=== PATIENT | male | born 1955 | race Caucasian/White ===

== ENCOUNTER 2017-07-15 05:51 | Inpatient (IN) | payer OTHER ==
[2017-07-15] MEDS ORDERED: LACTATED RINGER'S 1,000 ML IV* (06:00)
[2017-07-15] MEDS ORDERED: CEFAZOLIN 2 GM/50 ML (PMX) 50 ML IVPB (07:00)
[2017-07-15] MEDS ORDERED: D5W-0.45 NACL + KCL 20 MEQ 1,000 ML IV (07:00)
[2017-07-15] MEDS ORDERED: ROCURONIUM 50 MG INJ ×3 (07:00→10:50)
[2017-07-15] MEDS ORDERED: BUPIVACAINE 0.5%/EPI (SDV) 30 ML INJ (07:03)
[2017-07-15] MEDS ORDERED: MIDAZOLAM 1 MG/ML 2 ML INJ ×2 (07:34)
[2017-07-15] MEDS ORDERED: morphine SULFATE/PF (10 MG/10 ML) INJ (07:45)
[2017-07-15] MEDS ORDERED: FENTAnyl 50 MCG/ML VIAL ×3 (07:45→10:25)
[2017-07-15] MEDS ORDERED: PROPOFOL 20 ML (07:45)
[2017-07-15] MEDS ORDERED: LIDOCAINE 1% (MDV) 20 ML INJ (07:45)
[2017-07-15] MEDS: BUPIVACAINE 0.5%/EPI (SDV) 30 ML INJ INJ (08:05)
[2017-07-15] MEDS ORDERED: CEFAZOLIN 1 GM INJ (08:55)
[2017-07-15] MEDS ORDERED: metroNIDAZOLE 500 MG/NS (PMX) 100 ML IVPB (08:55)
[2017-07-15] MEDS ORDERED: PHENYLephrine (100 MCG/ML) 5ML SYG ×4 (09:12→12:12)
[2017-07-15] MEDS ORDERED: ONDANSETRON 4 MG INJ (09:55)
[2017-07-15] MEDS ORDERED: DEXAMETHASONE 4 MG/ML 1 ML INJ (09:55)
[2017-07-15] MEDS ORDERED: METOPROLOL 5 MG INJ (10:04)
[2017-07-15] MEDS ORDERED: ALBUMIN HUMAN 5% 500 ML ×2 (11:04→11:11)
[2017-07-15] MEDS ORDERED: NORepinephrine 4 MG INJ (11:10)
[2017-07-15] MEDS ORDERED: FUROSEMIDE 20 MG INJ (11:12)
[2017-07-15] MEDS ORDERED: PROPOFOL 100 ML (12:27)
[2017-07-15] MEDS: Metronidazole 500 MG in NS 100 ML IVPB (12:30)
[2017-07-15] MEDS: PHYTONADIONE SC (12:45)
[2017-07-15] MEDS: SOD CHLORIDE 0.9% SC (12:45)
[2017-07-15] MEDS ORDERED: SUGAMMADEX SODIUM 200 MG/2 ML VIAL IV ×2 (12:55→12:56)
[2017-07-15] MEDS: PROPOFOL 100 ML IV ×2 (13:21→21:13)
[2017-07-15] MEDS: LACTATED RINGER'S 1,000 ML IV ×2 (13:27→21:12)
[2017-07-15] MEDS ORDERED: FENTAnyl (DRIP) 1000 mcg/100mL 100 ML IV (13:30)
[2017-07-15] MEDS ORDERED: hydrALAzine 20 MG INJ IV (13:30)
[2017-07-15] MEDS ORDERED: LABETALOL HCL 20MG INJ IV (13:30)
[2017-07-15] MEDS: metroNIDAZOLE 500 MG/NS (PMX) 100 ML IVPB ×2 (13:34→21:12)
[2017-07-15 13:45] LABS: AADO2 Arterial 193.9 mmHg (7.0-24.0); Arterial Base Excess -9.2 mmol/L (-3.0-3); Arterial Blood Gas Oxygen Sat 96.6 mmHG (95.0-98.0); Arterial COHb 0.3 % (0.0-3.0); Arterial HCO3 18.5 mmol/L (22.0-26.0); Arterial MetHb 0.3 % (0.0-1.5); Arterial Total Hemglobin 11.3 g/dl (12.0-18.0); Arterial pCO2 47.8 mmhg (35-45); MODE VENT - AC; Site A-Line
[2017-07-15 14:19] LABS: ADD MAN DIFF? NO
[2017-07-15 14:20] LABS: ABNORMAL IP MESSAGE 1; BASOPHILS % 0.2 % (0.0-2.0); EOSINOPHILS % 0.1 % (0.0-7.0); HEMATOCRIT 29.9 % (42.0-52.0); HEMOGLOBIN 10.7 g/dl (14.0-18.0); LYMPHOCYTES # 0.6 10^3/ul (0.8-2.9); LYMPHOCYTES % 6.4 % (15.0-51.0); MEAN CORPUSCULAR HEMOGLOBIN 32.6 pg (29.0-33.0); MEAN CORPUSCULAR HGB CONC 35.8 g/dl (32.0-37.0); MEAN CORPUSCULAR VOLUME 91.2 fl (82.0-101.0); MEAN PLATELET VOLUME 10.1 fl (7.4-10.4); MONOCYTE # 0.2 10^3/ul (0.3-0.9); MONOCYTES % 1.9 % (0.0-11.0); NEUTROPHILS % 90.9 % (39.0-77.0); PLATELET COUNT 93 10^3/UL (140-415); POSITIVE DIFF @See below; RED BLOOD COUNT 3.28 10^6/ul (4.70-6.10); RED CELL DISTRIBUTION WIDTH 13.4 % (11.5-14.5)
[2017-07-15 14:20] LABS: WHITE BLOOD COUNT 8.8 10^3/ul (4.8-10.8)
[2017-07-15 14:39] LABS: ALANINE AMINOTRANSFERASE 36 IU/L (13-69); ALBUMIN 3.8 g/dl (3.3-4.9); ALBUMIN/GLOBULIN RATIO 1.22; ALKALINE PHOSPHATASE 104 IU/L (42-121); ANION GAP 15 (8-16); ASPARTATE AMINO TRANSFERASE 40 IU/L (15-46); BILIRUBIN,INDIRECT 0.3 mg/dl (0-1.1); BILIRUBIN,TOTAL 0.3 mg/dl (0.2-1.3); BLOOD UREA NITROGEN 9 mg/dl (7-20); CALCIUM 8.8 mg/dl (8.4-10.2); CARBON DIOXIDE 21 mmol/L (21-31); CHLORIDE 110 mmol/L (97-110); CREATININE 0.85 mg/dl (0.61-1.24); GLUCOSE 148 mg/dl (70-220); POTASSIUM 4.4 mmol/L (3.5-5.1); SODIUM 142 mmol/L (135-144); TOTAL PROTEIN 6.9 g/dl (6.1-8.1)
[2017-07-15 15:32] LABS: AADO2 Arterial 138.6 mmHg (7.0-24.0); Arterial Base Excess -6.3 mmol/L (-3.0-3); Arterial Blood Gas Oxygen Sat 96.4 mmHG (95.0-98.0); Arterial COHb 0.3 % (0.0-3.0); Arterial Fraction of Oxyhgb 95.9 % (93.0-99.0); Arterial MetHb 0.2 % (0.0-1.5); Arterial Total Hemglobin 11.1 g/dl (12.0-18.0); Arterial pCO2 42.9 mmhg (35-45); Blood Gas PS 10; MODE VENT - CPAP; Site A-Line
[2017-07-15] MEDS: CEFAZOLIN 2 GM/50 ML (PMX) 50 ML IVPB ×2 (18:21→23:41)
[2017-07-15 19:11] LABS: ADD MAN DIFF? NO
[2017-07-15 19:13] LABS: ABNORMAL IP MESSAGE 1; HEMOGLOBIN 10.3 g/dl (14.0-18.0); LYMPHOCYTES # 0.4 10^3/ul (0.8-2.9); MEAN CORPUSCULAR HEMOGLOBIN 32.3 pg (29.0-33.0); MEAN CORPUSCULAR HGB CONC 35.5 g/dl (32.0-37.0); MEAN CORPUSCULAR VOLUME 90.9 fl (82.0-101.0); MEAN PLATELET VOLUME 9.5 fl (7.4-10.4); MONOCYTE # 0.4 10^3/ul (0.3-0.9); MONOCYTES % 4.4 % (0.0-11.0); NEUTROPHIL # 7.4 10^3/ul (1.6-7.5); NEUTROPHILS % 90.1 % (39.0-77.0); PLATELET COUNT 88 10^3/UL (140-415); POSITIVE DIFF @See below; RED BLOOD COUNT 3.19 10^6/ul (4.70-6.10); RED CELL DISTRIBUTION WIDTH 13.5 % (11.5-14.5)
[2017-07-15 19:13] LABS: WHITE BLOOD COUNT 8.2 10^3/ul (4.8-10.8)
[2017-07-15 19:33] LABS: INR 1.16; PT RATIO 1.2
[2017-07-15 19:34] LABS: PARTIAL THROMBOPLASTIN TIME 31.5 Sec (25.0-35.0)
[2017-07-15 19:36] LABS: ALANINE AMINOTRANSFERASE 34 IU/L (13-69); ALBUMIN 3.8 g/dl (3.3-4.9); ALBUMIN/GLOBULIN RATIO 1.31; ALKALINE PHOSPHATASE 96 IU/L (42-121); ANION GAP 18 (8-16); ASPARTATE AMINO TRANSFERASE 49 IU/L (15-46); BILIRUBIN,INDIRECT 0.5 mg/dl (0-1.1); BILIRUBIN,TOTAL 0.5 mg/dl (0.2-1.3); BLOOD UREA NITROGEN 10 mg/dl (7-20); CALCIUM 8.8 mg/dl (8.4-10.2); CARBON DIOXIDE 21 mmol/L (21-31); CHLORIDE 108 mmol/L (97-110); CREATININE 0.73 mg/dl (0.61-1.24); GLUCOSE 139 mg/dl (70-220); POTASSIUM 4.1 mmol/L (3.5-5.1); SODIUM 143 mmol/L (135-144); TOTAL PROTEIN 6.7 g/dl (6.1-8.1)
[2017-07-15 19:40] LABS: LACTIC ACID 2.9 mmol/L (0.5-2.0)
[2017-07-15 20:03] LABS: MAGNESIUM 1.3 mg/dl (1.7-2.5)
[2017-07-15 20:03] LABS: PHOSPHORUS 4.6 mg/dl (2.5-4.9)
[2017-07-16] MEDS: HYDROmorphONE 0.5 MG/0.5 ML SYG IV ×2 (02:03→20:37)
[2017-07-16 05:42] LABS: ADD MAN DIFF? NO
[2017-07-16] MEDS: CEFAZOLIN 2 GM/50 ML (PMX) 50 ML IVPB (05:50)
[2017-07-16] MEDS: PANTOPRAZOLE 40 MG INJ IV (05:50)
[2017-07-16] MEDS: metroNIDAZOLE 500 MG/NS (PMX) 100 ML IVPB (05:50)
[2017-07-16 05:54] LABS: WHITE BLOOD COUNT 8.5 10^3/ul (4.8-10.8)
[2017-07-16 05:54] LABS: ABNORMAL IP MESSAGE 1; BASOPHILS % 0.1 % (0.0-2.0); HEMOGLOBIN 9.3 g/dl (14.0-18.0); MEAN CORPUSCULAR HEMOGLOBIN 31.5 pg (29.0-33.0); MEAN CORPUSCULAR HGB CONC 35.8 g/dl (32.0-37.0); MEAN CORPUSCULAR VOLUME 88.1 fl (82.0-101.0); MEAN PLATELET VOLUME 10.8 fl (7.4-10.4); MONOCYTE # 0.6 10^3/ul (0.3-0.9); MONOCYTES % 7.4 % (0.0-11.0); NEUTROPHIL # 6.8 10^3/ul (1.6-7.5); NEUTROPHILS % 80.1 % (39.0-77.0); PLATELET COUNT 79 10^3/UL (140-415); POSITIVE DIFF @See below; RED BLOOD COUNT 2.95 10^6/ul (4.70-6.10); RED CELL DISTRIBUTION WIDTH 13.2 % (11.5-14.5)
[2017-07-16 06:09] LABS: INR 1.23; PROTIME 15.7 Sec (11.9-14.9); PT RATIO 1.2
[2017-07-16 06:10] LABS: PARTIAL THROMBOPLASTIN TIME 31.7 Sec (25.0-35.0)
[2017-07-16 06:18] LABS: CALCIUM 9.1 mg/dl (8.4-10.2)
[2017-07-16 06:18] LABS: PHOSPHORUS 4.4 mg/dl (2.5-4.9)
[2017-07-16 06:20] LABS: B-TYPE NATRIURETIC PEPTIDE 361 PG/ML (0-125)
[2017-07-16 06:35] LABS: LACTIC ACID 0.9 mmol/L (0.5-2.0)
[2017-07-16 06:37] LABS: ALANINE AMINOTRANSFERASE 35 IU/L (13-69); ALBUMIN 3.1 g/dl (3.3-4.9); ALBUMIN/GLOBULIN RATIO 1.06; ALKALINE PHOSPHATASE 83 IU/L (42-121); ANION GAP 12 (8-16); ASPARTATE AMINO TRANSFERASE 38 IU/L (15-46); BILIRUBIN,INDIRECT 0.6 mg/dl (0-1.1); BILIRUBIN,TOTAL 0.6 mg/dl (0.2-1.3); BLOOD UREA NITROGEN 9 mg/dl (7-20); CARBON DIOXIDE 23 mmol/L (21-31); CHLORIDE 109 mmol/L (97-110); CREATININE 0.58 mg/dl (0.61-1.24); GLUCOSE 97 mg/dl (70-220); MAGNESIUM 1.2 mg/dl (1.7-2.5); POTASSIUM 3.9 mmol/L (3.5-5.1); SODIUM 140 mmol/L (135-144)
[2017-07-16] MEDS: MAGNESIUM SULFATE 3 GM in DEXTROSE 5% 100 ML IVPB (07:07)
[2017-07-16 08:17] LABS: AADO2 Arterial 20.2 mmHg (7.0-24.0); Arterial Base Excess -3.5 mmol/L (-3.0-3); Arterial Blood Gas Oxygen Sat 96.4 mmHG (95.0-98.0); Arterial COHb 0.3 % (0.0-3.0); Arterial Fraction of Oxyhgb 95.8 % (93.0-99.0); Arterial HCO3 20.3 mmol/L (22.0-26.0); Arterial MetHb 0.3 % (0.0-1.5); Arterial Total Hemglobin 9.4 g/dl (12.0-18.0); Arterial pCO2 31.9 mmhg (35-45); MODE ROOM AIR; Site A-Line
[2017-07-16] MEDS: LACTATED RINGER'S 1,000 ML IV ×2 (08:17→09:00)
[2017-07-16] MEDS: PROPOFOL 100 ML IV (10:39)
[2017-07-16] MEDS: ALLOPURINOL 300 MG TAB PO (16:15)
[2017-07-16] MEDS: CALCIUM/VITAMIN D (500/200) TAB PO (20:13)
[2017-07-17] MEDS: HYDROmorphONE 0.5 MG/0.5 ML SYG IV (01:53)
[2017-07-17 05:40] LABS: ADD MAN DIFF? NO
[2017-07-17] MEDS: PANTOPRAZOLE 40 MG INJ IV (05:41)
[2017-07-17 05:44] LABS: ABNORMAL IP MESSAGE 1; BASOPHILS % 0.5 % (0.0-2.0); EOSINOPHILS % 0.5 % (0.0-7.0); HEMATOCRIT 25.5 % (42.0-52.0); HEMOGLOBIN 9.4 g/dl (14.0-18.0); LYMPHOCYTES # 1.9 10^3/ul (0.8-2.9); LYMPHOCYTES % 31.2 % (15.0-51.0); MEAN CORPUSCULAR HEMOGLOBIN 32.2 pg (29.0-33.0); MEAN CORPUSCULAR HGB CONC 36.9 g/dl (32.0-37.0); MEAN CORPUSCULAR VOLUME 87.3 fl (82.0-101.0); MEAN PLATELET VOLUME 10.8 fl (7.4-10.4); MONOCYTE # 0.6 10^3/ul (0.3-0.9); MONOCYTES % 9.3 % (0.0-11.0); NEUTROPHIL # 3.6 10^3/ul (1.6-7.5); NEUTROPHILS % 58.2 % (39.0-77.0); PLATELET COUNT 84 10^3/UL (140-415); POSITIVE DIFF @See below; RED BLOOD COUNT 2.92 10^6/ul (4.70-6.10); RED CELL DISTRIBUTION WIDTH 13.3 % (11.5-14.5)
[2017-07-17 05:44] LABS: WHITE BLOOD COUNT 6.2 10^3/ul (4.8-10.8)
[2017-07-17 06:06] LABS: ALANINE AMINOTRANSFERASE 36 IU/L (13-69); ALBUMIN/GLOBULIN RATIO 1.15; ALKALINE PHOSPHATASE 89 IU/L (42-121); ANION GAP 13 (8-16); ASPARTATE AMINO TRANSFERASE 34 IU/L (15-46); BILIRUBIN,INDIRECT 0.7 mg/dl (0-1.1); BILIRUBIN,TOTAL 0.7 mg/dl (0.2-1.3); BLOOD UREA NITROGEN 8 mg/dl (7-20); CALCIUM 8.3 mg/dl (8.4-10.2); CARBON DIOXIDE 25 mmol/L (21-31); CHLORIDE 107 mmol/L (97-110); CREATININE 0.68 mg/dl (0.61-1.24); GLUCOSE 85 mg/dl (70-220); PHOSPHORUS 2.9 mg/dl (2.5-4.9); POTASSIUM 3.7 mmol/L (3.5-5.1); SODIUM 141 mmol/L (135-144); TOTAL PROTEIN 5.6 g/dl (6.1-8.1)
[2017-07-17 06:08] LABS: ANION GAP 12 (8-16); BLOOD UREA NITROGEN 9 mg/dl (7-20); CALCIUM 8.8 mg/dl (8.4-10.2); CARBON DIOXIDE 25 mmol/L (21-31); CHLORIDE 105 mmol/L (97-110); CREATININE 0.71 mg/dl (0.61-1.24); GLUCOSE 86 mg/dl (70-220); MAGNESIUM 1.4 mg/dl (1.7-2.5); POTASSIUM 3.5 mmol/L (3.5-5.1); SODIUM 138 mmol/L (135-144)
[2017-07-17 06:13] LABS: B-TYPE NATRIURETIC PEPTIDE 746 PG/ML (0-125)
[2017-07-17 06:18] LABS: INR 1.23; PROTIME 15.7 Sec (11.9-14.9); PT RATIO 1.2
[2017-07-17 06:19] LABS: PARTIAL THROMBOPLASTIN TIME 34.7 Sec (25.0-35.0)
[2017-07-17 06:57] LABS: LACTIC ACID 0.8 mmol/L (0.5-2.0)
[2017-07-17] MEDS ORDERED: HYDROmorphONE 0.5 MG/0.5 ML SYG IV (08:00)
[2017-07-17] MEDS ORDERED: HYDROmorphONE 1 MG/ML SYG IV (08:00)
[2017-07-17] MEDS: CALCIUM/VITAMIN D (500/200) TAB PO ×2 (08:36→20:56)
[2017-07-17] MEDS: ALLOPURINOL 300 MG TAB PO (08:36)
[2017-07-17] MEDS: HYDROCODONE/APAP (5/325) TAB PO ×2 (12:02→21:02)
[2017-07-17] MEDS: MAGNESIUM SULFATE 2 GM/50 ML 50 ML IVPB (14:07)
[2017-07-17] MEDS: FAMOTIDINE 20 MG TAB PO (20:56)
[2017-07-18] MEDS: HYDROCODONE/APAP (5/325) TAB PO ×2 (02:37→13:45)
[2017-07-18 06:14] LABS: ADD MAN DIFF? NO
[2017-07-18 06:28] LABS: ABNORMAL IP MESSAGE 1; BASOPHILS % 0.8 % (0.0-2.0); EOSINOPHILS # 0.1 10^3/ul (0.0-0.5); HEMATOCRIT 26.5 % (42.0-52.0); HEMOGLOBIN 9.6 g/dl (14.0-18.0); LYMPHOCYTES % 38.7 % (15.0-51.0); MEAN CORPUSCULAR HEMOGLOBIN 32.3 pg (29.0-33.0); MEAN CORPUSCULAR HGB CONC 36.2 g/dl (32.0-37.0); MEAN CORPUSCULAR VOLUME 89.2 fl (82.0-101.0); MEAN PLATELET VOLUME 10.6 fl (7.4-10.4); MONOCYTE # 0.4 10^3/ul (0.3-0.9); NEUTROPHIL # 2.6 10^3/ul (1.6-7.5); NEUTROPHILS % 50.1 % (39.0-77.0); POSITIVE DIFF @See below; RED BLOOD COUNT 2.97 10^6/ul (4.70-6.10); RED CELL DISTRIBUTION WIDTH 13.4 % (11.5-14.5)
[2017-07-18 06:28] LABS: WHITE BLOOD COUNT 5.1 10^3/ul (4.8-10.8)
[2017-07-18 06:35] LABS: PLATELET COUNT 87 10^3/UL (140-415)
[2017-07-18 06:39] LABS: INR 1.18; PROTIME 15.2 Sec (11.9-14.9); PT RATIO 1.2
[2017-07-18 06:40] LABS: PARTIAL THROMBOPLASTIN TIME 33.4 Sec (25.0-35.0)
[2017-07-18 06:59] LABS: B-TYPE NATRIURETIC PEPTIDE 445 PG/ML (0-125)
[2017-07-18 07:08] LABS: ALANINE AMINOTRANSFERASE 33 IU/L (13-69); ALBUMIN 3.3 g/dl (3.3-4.9); ALBUMIN/GLOBULIN RATIO 1.03; ALKALINE PHOSPHATASE 87 IU/L (42-121); ANION GAP 11 (8-16); ASPARTATE AMINO TRANSFERASE 37 IU/L (15-46); BILIRUBIN,INDIRECT 0.6 mg/dl (0-1.1); BILIRUBIN,TOTAL 0.6 mg/dl (0.2-1.3); BLOOD UREA NITROGEN 8 mg/dl (7-20); CARBON DIOXIDE 29 mmol/L (21-31); CHLORIDE 105 mmol/L (97-110); CREATININE 0.72 mg/dl (0.61-1.24); GLUCOSE 84 mg/dl (70-220); MAGNESIUM 1.6 mg/dl (1.7-2.5); PHOSPHORUS 3.8 mg/dl (2.5-4.9); POTASSIUM 3.4 mmol/L (3.5-5.1); SODIUM 142 mmol/L (135-144); TOTAL PROTEIN 6.5 g/dl (6.1-8.1)
[2017-07-18 08:32] LABS: ANISOCYTOSIS 1+ (0-0); BAND NEUTROPHILS #M 0.1 10^3/ul (0.0-0.6); BAND NEUTROPHILS % (M) 3 % (0-4); BASOPHIL #M 0.1 10^3/ul (0.0-0.0); BASOPHILS % (M) 2 % (0-2); LYMPHOCYTES #M 2.3 10^3/ul (0.8-2.9); LYMPHOCYTES % (M) 46 % (15-51); MICROCYTOSIS 1+ (0-0); MONOCYTE #M 0.2 10^3/ul (0.3-0.9); MONOCYTES % (M) 4 % (0-11); PLATELET ESTIMATE DECREASED; SEG NEUT #M 2.3 10^3/ul (1.7-7.5); SEGMENTED NEUTROPHILS (M) % 45 % (39-77); SMUDGE%M 2 % (0-0)
[2017-07-18] MEDS: CALCIUM/VITAMIN D (500/200) TAB PO (08:49)
[2017-07-18] MEDS: ALLOPURINOL 300 MG TAB PO (08:49)
== END 2017-07-18 15:50 | disposition home or self-care (01) | DRG 331 ==
LOC: REC 05:51 → MS2 07-16 23:20 → ICU 12:38
PROC: 0DTG0ZZ Resection of Left Large Intestine, Open Approach (ICD-10-PCS; principal; 2017-07-15 07:30)
PROC: 0FB04ZX Excision of Liver, Percutaneous Endoscopic Approach, Diagnostic (ICD-10-PCS; 2017-07-15 07:30)
PROC: 0DBL0ZZ Excision of Transverse Colon, Open Approach (ICD-10-PCS; 2017-07-15 07:30)
DX: C18.6 Malignant neoplasm of descending colon (principal); K70.30 Alcoholic cirrhosis of liver without ascites; F10.21 Alcohol dependence, in remission; Z53.31 Laparoscopic surgical procedure converted to open procedure; K21.9 Gastro-esophageal reflux disease without esophagitis; K29.50 Unspecified chronic gastritis without bleeding; M10.9 Gout, unspecified; E55.9 Vitamin D deficiency, unspecified; F17.200 Nicotine dependence, unspecified, uncomplicated; Z80.9 Family history of malignant neoplasm, unspecified
CPT/HCPCS: 36600; 71045; 80048; 80053; 82310; 82803; 83605; 83735; 83880; 84100; 85025; 85610; 85730; 86850; 86900; 86901; 86920; 87081; 88307; 88313; 88331; 94002; J1940

== ENCOUNTER 2018-03-16 13:08 | Emergency (ER) | payer OTHER | END 2018-03-16 16:28 | disposition home or self-care (01) | LOC: FTE 13:08 | DX: Z48.02 Encounter for removal of sutures (principal); Z87.891 Personal history of nicotine dependence | CPT/HCPCS: 99283; Z7502 ==

== ENCOUNTER 2018-11-25 00:51 | Emergency (ER) | payer OTHER ==
[2018-11-25] MEDS: TETRACAINE 0.5% 4 ML OPH LEFT EYE (04:19)
[2018-11-25] MEDS: FLUORESCEIN STRIP LEFT EYE (04:19)
== END 2018-11-25 04:21 | disposition home or self-care (01) ==
LOC: FTE 00:51
DX: T15.02XA Foreign body in cornea, left eye, initial encounter (principal); F17.210 Nicotine dependence, cigarettes, uncomplicated; X58.XXXA Exposure to other specified factors, initial encounter; Y92.9 Unspecified place or not applicable
CPT/HCPCS: 65220; 99283-25